=== PATIENT | female | born 1960 | race Caucasian/White ===

== ENCOUNTER 2018-03-24 16:56 | Emergency (ER) | payer OTHER, MEDICARE ==
[~2018-03-24] VITALS: Ht 175.3 cm; Wt 102.5 kg
--- NOTE | 2018-03-24 17:09 | NUR ---
ARRIVAL PATIENT ARRIVED TO [facility] AMBULATORY, C/O OF FALL TODAY AT HOME, PATIENT STATES HER HOUSE SHOE SLIPPED CAUSING HER TO FALL AND HIT THE BACK OF HER HEAD ON A DESK, 1 1/2 CM LACERATION NOTED TO THE BACK OF HER HEAD, WOUND CLEANED WITH HEBICLEANSE, DOCTOR MALU TO ROOM
[2018-03-24 17:11] VITALS: BP 122/77
--- NOTE | 2018-03-24 17:21 | ER.PDOC ---
General Chief Complaint: Requesting Medical Care Stated Complaint: FALL,HEAD INJURY Time seen by MD: 17:00 Source: patient Exam Limitations: no limitations History of Present Illness Initial Comments Pt states she fell at approximately 2:00 pm and hit the back of her head on a wooden desk. She denies vision changes or LOC or N/V. There is an approximately 1.5 cm laceration on the posterior scalp. Occurred: this afternoon Where: home Severity: mild Context: direct blow Associated Symptoms: No Loss of Consciousness Remembers: injury, coming to hospital Allergies: Coded Allergies: Sulfa (Sulfonamide Antibiotics) (Verified Allergy, Unknown, RASH, 03/24/18) Home Meds Unable to Obtain Active Prescriptions or Reported Meds Review of Systems Constitutional: denies no symptoms reported, denies see HPI, denies chills, denies diaphoresis, denies fever, denies malaise, denies weakness, denies other Eyes: denies no symptoms reported, denies see HPI, denies blindness, denies blurred vision, denies drainage, denies decreased acuity, denies foreign body sensation, denies inflammation, denies pain, denies photophobia, denies previous injury, denies shadows, denies tunnel vision, denies vision change, denies contact lenses, denies glasses, denies other Ears: denies no symptoms reported, denies see HPI, denies dizziness, denies pain, denies tinnitus, denies bloody discharge, denies clear discharge, denies purulent discharge, denies serosanguinous discharge, denies previous injury, denies other Respiratory: denies no symptoms reported, denies see HPI, denies cough, denies orthopnea, denies shortness of breath, denies stridor, denies wheezing, denies other Cardiovascular: denies no symptoms reported, denies see HPI, denies chest pain , denies edema, denies irregular heart rate, denies lightheadedness, denies palpitations, denies syncope, denies other Gastrointestinal: denies no symptoms reported, denies see HPI, denies abdominal pain, denies constipation, denies diarrhea, denies nausea, denies vomiting, denies other Skin: other (Posterior scalp laceration 1.5cm) Psychiatric/Neurological: denies no symptoms reported, denies see HPI, denies anxiety, denies depressed, denies emotional problems, denies cognitive dysfunction, denies headache, denies numbness, denies petit mal seizures, denies tingling, denies tonic-clonic seizures, denies unable to move lower ext, denies unable to move upper ext, denies weakness, denies other Physical Exam General Appearance: alert, no distress 1 - 1.5 cm Neck: non-tender, painless ROM Eyes: lids nml, conjunctivae nml, PERRL, EOMI Neuro/Psych: oriented x 3, sensation nml, motor nml, CN's nml as tested, mood/ affect nml Respiratory: chest non-tender, no resp distress CVS: heart sounds nml, reg. rate & rhythm Abdomen: non-tender ED LACERATION WOUND REPAIR # of Wounds/Lacerations Presen: 1 Wound Location & Length (Requi: parietal region Wound Length (cm): 2 Wound cleaned: hibiclens Distal NVT: neuro intact, vasc intact Wound's Depth, Shape: superficial, linear, subcutaneous Wound Explored: clean Wound Debrided: minimal Wound Repaired With: chayo Number of Sutures: 5 Departure Time of Disposition: 17:34 Disposition: 01 HOME, SELF-CARE Impression: Primary Impression: Scalp laceration Condition: Stable Patient Instructions: Laceration Care, Adult, [id number] Referrals: PCP,UNKNOWN (PCP) PRIMARY CARE PROVIDER Scripts Unable to Obtain Active Prescriptions or Reported Meds Duration or Time Spent with Pa: 20 CONCHITA TORIBIO MD Mar 24, 2018 17:21
--- NOTE | 2018-03-24 17:24 | NUR ---
REYNALDO 5 REYNALDO PLACED BY MARIELENA SHARP. PATIENT TOLERATED WELL.
[2018-03-24 17:35] VITALS: BP 130/72
[2018-03-24 17:42] VITALS: BP 122/77
[2018-03-24] MEDS ORDERED: BOOSTRIX VACCINE SYRINGE IM ONE (18:00)
== END 2018-03-24 17:40 | disposition home or self-care (01) ==
LOC: ER 16:56
DX: S01.01XA Laceration without foreign body of scalp, initial encounter (principal); Z88.2 Allergy status to sulfonamides; W20.8XXA Other cause of strike by thrown, projected or falling object, initial encounter; Y93.89 Activity, other specified; Y92.098 Other place in other non-institutional residence as the place of occurrence of the external cause; Y99.8 Other external cause status
CPT/HCPCS: 90471; 90715; 99283; 12001